=== PATIENT | male | born 2005 | race Caucasian/White ===

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

== ENCOUNTER 2024-02-09 11:41 | Outpatient (CLI) | payer BC ==
[~2024-02-09] VITALS: Ht 182.9 cm; Wt 96.4 kg
[~2024-02-09 11:41] MED LIST changes: +EOHILIA2 MG/10 ML PO; +PROTONIX20 MG PO
[2024-02-09] MEDS ORDERED: NS IV ONE (12:15)
[2024-02-09] MEDS ORDERED: INFLIXIMAB DYYB IV ONE (12:15)
[2024-02-09] MEDS ORDERED: Acetaminophen 500 MG TAB PO ONE (12:15)
[2024-02-09] MEDS ORDERED: diphenhydrAMINE 50 MG CAP PO ONE (12:15)
[2024-02-09 13:00] VITALS: BP 107/87; PULSE 66; TEMP 98.7
[2024-02-09 13:30] VITALS: BP 117/70; PULSE 65
[2024-02-09 14:00] VITALS: BP 124/61; PULSE 77
[2024-02-09 14:30] VITALS: BP 118/71; PULSE 65
[2024-02-09 15:00] VITALS: BP 126/80; PULSE 76
== END 2024-02-09 15:10 | disposition home or self-care (01) ==
LOC: EUO 11:41
DX: K51.00 Ulcerative (chronic) pancolitis without complications (principal)
CPT/HCPCS: J7050; Q5103